=== PATIENT | male | born 1960 | race Two or more races ===

== ENCOUNTER 2016-10-15 21:16 | Emergency (ER) | payer MEDICAID, OTHER ==
[~2016-10-15] VITALS: Ht 177.8 cm; Wt 63.5 kg
[2016-10-16 07:23] VITALS: BP 126/89
[2016-10-16] MEDS ORDERED: LORazepam 2MG/ML-1ML VIAL IM ONE (08:00)
== END 2016-10-16 08:22 | disposition home or self-care (01) ==
LOC: ER 21:20
DX: F41.9 Anxiety disorder, unspecified (principal); F20.9 Schizophrenia, unspecified; F32.9 Major depressive disorder, single episode, unspecified
CPT/HCPCS: 96372; 99283; J2060